=== PATIENT | female | born 1960 | race Caucasian/White ===

== ENCOUNTER → 2018-08-24 15:01 | Outpatient (CLI) | payer OTHER, SELFPAY ==
--- NOTE | 2018-08-24 15:05 | BI_ITS ---
MAMMOGRAPHY - BILATERAL SCREENING REASON FOR EXAM: Female, 58 years old. Routine annual screening examination. PERTINENT HISTORY: Non-contributory. Bilateral breast implants. TECHNIQUE: Digital bilateral breast max (3D mammographic acquisition) in the CC and MLO projections. 2-D mediolateral oblique (MLO) and craniocaudad (CC) views of both breasts were obtained. CAD: Full Field Digital Mammography with Computer Added Detection was performed. COMPARISON: Comparison is made with prior study dated August 20, 2016 and October 26, 2013. FINDINGS: Breast Composition: There are scattered areas of fibroglandular density. There are no dominant masses or suspicious calcifications. Stable appearance of the bilateral breast implants. No other significant abnormalities are identified. There has been no significant change since the prior study. BI/SCREENING MAMM (CAD), BILAT IMPRESSION: Stable bilateral screening mammogram. Yearly follow-up mammogram recommended. (A) ASSESSMENT CATEGORY: BIRADS Category 2: Benign. A letter regarding these results will be sent to the patient by the facility within 30 days. Approximately 10% of breast cancers are not detected by mammography. A normal mammogram should not delay biopsy of a clinically suspicious abnormality. [id number] Electronically Signed: Navjot Jay, at 8:53 EST , Service support ,
== END ==
PROVIDERS: Family Provider Family Medicine; PCP Family Medicine; Visit Provider Family Medicine
DX: Z12.31 Encounter for screening mammogram for malignant neoplasm of breast (principal)
CPT/HCPCS: 77063; 77067

== ENCOUNTER 2018-09-14 17:38 | Emergency (ER) | payer OTHER, SELFPAY ==
[2018-09-14 17:39] VITALS: BP 126/86; PULSE 77; RESP 16; TEMP 36.7; O2SAT 97; BMI 31.2
--- NOTE | 2018-09-14 18:24 | ED.DCSUM_ITS ---
- ER Visit Summary Date of Service: 09/14/18 Chief Complaint: Left fifth finger laceration History of Present Illness: The patient is a 58 F who was cooking dinner tonight and cut the end of her left fifth finger. She states that bleeding continued for an hour so she presented to the emergency room. Bleeding seems to be under control at this time. Tetanus update was just a few months ago. She is right- hand dominant. Physical Examination: Vital signs unremarkable. Patient sitting in bedside chair. Left upper extremity examination with a 2 x 4 mm skin avulsion over the distal left fifth finger. Bleeding is controlled at this time. She has normal range of motion and sensation. Test Results: [] Emergency Department Course and Treatment: Wound is cleansed. Gelfoam will be placed and a dressing applied. Treatment Plan: [] Disposition: Discharge Impression: Skin avulsion left fifth finger This note was generated with [employer] dictation software. It may contain incorrect words, spelling, and punctuation that were not noted in review of the chart prior to signing ED Disposition - Plan for ED Patient: Referrals: Roderick Weller DO [Primary Care Provider] -
--- NOTE | 2018-09-14 18:24 | ED.DEP ---
ED Disposition - Plan for ED Patient: Disposition: Home or Assisted Living Instructions: ED Avulsion Dermal Referrals: Roderick Weller DO [Primary Care Provider] - 1-2 Weeks
--- NOTE | 2018-09-14 18:41 | ED.RN ---
INJURED DIGIT DRESSED WITH GEL FOAM AND TUBE GAUZE. PT TOLERATED WELL. INSTRUCTIONS FOR CARE AT HOME GIVEN TO PT AND SPOUSE, BOTH CONVEYED UNDERSTANDING. TEACHING OF SIGNS OF INFECTION COMPLETE.
== END 2018-09-14 18:43 | disposition home or self-care (01) ==
LOC: ED 18:31
PROVIDERS: Emergency Provider Emergency Medicine; Family Provider Family Medicine; PCP Family Medicine
DX: S61.217A Laceration without foreign body of left little finger without damage to nail, initial encounter (principal); Z79.899 Other long term (current) drug therapy; W45.8XXA Other foreign body or object entering through skin, initial encounter; Y93.G3 Activity, cooking and baking; Y92.000 Kitchen of unspecified non-institutional (private) residence as the place of occurrence of the external cause; Y99.8 Other external cause status
CPT/HCPCS: 99282

== ENCOUNTER → 2019-01-06 | Outpatient (CLI) | payer OTHER, SELFPAY ==
--- NOTE | 2019-01-06 06:41 | MRI_ITS ---
STUDY: MRI BRAIN WITH AND WITHOUT CONTRAST (ATTENTION INTERNAL AUDITORY CANALS - I.A.C.'s) REASON FOR EXAM: Female, 58 years old. Hearing loss, right-sided tinnitus TECHNIQUE: Standardized multiplanar fat and water weighted pulse sequences were obtained. 17 IV Dotarem was administered for the contrast portion of the examination. COMPARISON: None. FINDINGS: Normal bilateral temporal bones. Normal bilateral internal auditory canals. There is no demonstrated intracanalicular or cisternal vestibular schwannoma (acoustic neuroma). There is no enhancement of the bilateral VIIth or VIIIth cranial nerves. Normal bilateral cochlea, vestibules and semicircular canals. Normal size of the ventricles and extra-axial spaces for the patient's age. Normal white matter tracts of the supratentorial brain. Normal bilateral basal ganglia. Normal thalami. Normal flow voids within the major intracranial circulation suggesting patency by spin echo criteria. Normal venous enhancement. There is no enhancing intra-axial or extra-axial abnormality. There is no extra-axial fluid accumulation. Normal sella turcica, pituitary gland, infundibular stalk, optic chiasm and hypothalamus. Normal tectal plate and pineal gland. Normal midbrain, leilani and medulla. Normal cerebellum. Normal basal cisterns. No demonstrated orbital abnormality, within the constraints of a routine brain study. Normal visualized paranasal sinuses. Normal calvarium and skull base. Normal visualized soft tissue structures. Normal visualized upper cervical spine. MRI/Brain W/WO Contrast IMPRESSION: Normal unenhanced and enhanced MRI of the bilateral internal auditory canals (I.A.C's). Electronically Signed: Mayela Viramontes, at 8:26 EDT Tel , Service support ,
--- NOTE | 2019-01-06 08:02 | NURSING ---
CONTRAST INJECTION THROUGH LT AC X2 ATTEMPTS BY THIS RN WITH BUTTERFLY NEEDLE.
== END | disposition home or self-care (01) ==
LOC: MRI 06:35
PROVIDERS: Family Provider Family Medicine; PCP Family Medicine; Referring Provider Otolaryngology; Visit Provider Otolaryngology
DX: H91.90 Unspecified hearing loss, unspecified ear (principal); H93.11 Tinnitus, right ear
CPT/HCPCS: 70553; A9575

== ENCOUNTER → 2019-08-25 07:18 | Outpatient (CLI) | payer OTHER, SELFPAY ==
[2019-08-01 15:26] VITALS: BMI 31.2
--- NOTE | 2019-08-25 07:20 | BI_ITS ---
MAMMOGRAPHY - BILATERAL SCREENING REASON FOR EXAM: Female, 59 years old. Routine annual screening examination. PERTINENT HISTORY: No family history of breast cancer TECHNIQUE: Digital bilateral breast yogi (3D mammographic acquisition) in the CC and MLO projections. 2-D mediolateral oblique (MLO) and craniocaudad (CC) views of both breasts were obtained. CAD: Full Field Digital Mammography with Computer Added Detection was performed. COMPARISON: Previously obtained on 08/24/2018 FINDINGS: Breast Composition: Heterogeneously dense There are no dominant masses or suspicious calcifications. No other significant abnormalities are identified. Bilateral breast implants are identified. BI/SCREEN MAMM (CAD) W/YOGI BILAT IMPRESSION: Stable bilateral screening mammogram. Yearly follow-up mammogram recommended. (A) ASSESSMENT CATEGORY: BIRADS Category 1: Negative. A letter regarding these results will be sent to the patient by the facility within 30 days. Approximately 10% of breast cancers are not detected by mammography. A normal mammogram should not delay biopsy of a clinically suspicious abnormality. [id number] Electronically Signed: Mike Leilani, at 17:58 EST Tel , Service support ,
== END ==
PROVIDERS: PCP Family Medicine; Referring Provider Family Medicine; Visit Provider Family Medicine
DX: Z12.31 Encounter for screening mammogram for malignant neoplasm of breast (principal)
CPT/HCPCS: 77063; 77067

== ENCOUNTER → 2020-02-23 09:52 | Outpatient (CLI) | payer OTHER, SELFPAY ==
[2020-02-13 15:45] VITALS: BMI 31.2
--- NOTE | 2020-02-23 09:57 | BD_ITS ---
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 COMPARISON: None. FINDINGS: Lumbar Spine (L1-L4): g/cm2 (1.051) / T-score (-1.0) / Z-score (0.1) Findings are suggestive of normal bone density with a low fracture risk. Left Femur Total: g/cm2 (0.881) / T-score (-1.0) / Z-score (-0.2) Left Femoral Neck: g/cm2 (0.837) / T-score (-1.4) / Z-score (-0.3) Right Femur Total: g/cm2 (0.815) / T-score (-1.5) / Z-score (-0.7) Right Femoral Neck: g/cm2 (0.784) / T-score (-1.8) / Z-score (-0.7) BD/Dexa Bone Density Study IMPRESSION: The patient is considered osteopenic as outlined below according to World Fazal Organization (WHO) criteria with a moderate fracture risk. Reference Information: The T-score is the number of standard deviations above or below the standard which is normal for young adults at their peak bone mineral density. The World Health Organization (WHO) interprets the T-scores as follows: Above -1 Normal bone density Between -1 and -2.5 Osteopenia Equal to / or below -2.5 Osteoporosis As a practical clinical guideline, osteopenia may be graded as follows: Mild -1 through -1.5 Moderate -1.6 through -2.0 Severe -2.1 through -2.4 The Z-score is the number of standard deviations above or below age-matched controls. A Z-score of less than -1.5 would be considered abnormal. References: 1. NIH Osteoporosis and Related Bone Diseases http://www.osteo.org 2. International Society for Clinical Densitometry http://www.iscd.org 3. National Osteoporosis Foundation http://www.nof.org Electronically Signed: Navjot Jay, at 14:43 EDT , Service support ,
== END ==
PROVIDERS: PCP Family Medicine; Referring Provider Family Medicine; Visit Provider Family Medicine
DX: Z78.0 Asymptomatic menopausal state (principal)
CPT/HCPCS: 77080

== ENCOUNTER 2020-03-14 12:45 | Outpatient (RCR) | payer OTHER, SELFPAY ==
[2020-02-13 15:45] VITALS: BMI 31.2
== END 2020-03-28 23:59 ==
LOC: EMPH 12:45
PROVIDERS: PCP Family Medicine; Visit Provider Family Medicine Geriatric Medicine
DX: Z11.59 Encounter for screening for other viral diseases (principal)
CPT/HCPCS: 87635; U0003

== ENCOUNTER → 2020-04-19 09:50 | Outpatient (CLI) | payer OTHER, SELFPAY ==
[2020-02-13 15:45] VITALS: BMI 31.2
== END ==
PROVIDERS: Anesthesiology; PCP Family Medicine; Referring Provider Family Medicine; Visit Provider Surgery
DX: Z20.828 Contact with and (suspected) exposure to other viral communicable diseases (principal)
CPT/HCPCS: 87635; C9803; U0003

== ENCOUNTER 2020-04-23 14:25 | Outpatient (RCR) | payer OTHER, SELFPAY ==
[2020-02-13 15:45] VITALS: BMI 31.2
[2020-04-23 17:52] LABS: Probe Check PASS; Specimen Processing Control PASS
== END 2020-04-28 23:59 ==
LOC: EMPH 14:25
PROVIDERS: PCP Family Medicine; Referring Provider Family Medicine Geriatric Medicine; Visit Provider Family Medicine Geriatric Medicine
DX: U07.1 COVID-19 (principal)
CPT/HCPCS: 87426; 87635; U0002

== ENCOUNTER 2020-07-27 08:39 | Outpatient (RCR) | payer OTHER, SELFPAY ==
[2020-02-13 15:45] VITALS: BMI 31.2
== END 2020-07-29 23:59 ==
LOC: EMPH 08:39
PROVIDERS: PCP Family Medicine; Referring Provider Family Medicine Geriatric Medicine; Visit Provider Family Medicine Geriatric Medicine
DX: Z03.818 Encounter for observation for suspected exposure to other biological agents ruled out (principal)
CPT/HCPCS: 87426

== ENCOUNTER 2020-08-21 12:36 | Outpatient (RCR) | payer OTHER, SELFPAY | END 2020-08-26 23:59 | LOC: EMPH 12:36 | PROVIDERS: PCP Family Medicine; Referring Provider Family Medicine Geriatric Medicine; Visit Provider Family Medicine Geriatric Medicine | DX: Z03.818 Encounter for observation for suspected exposure to other biological agents ruled out (principal) | CPT/HCPCS: 87426 ==

== ENCOUNTER 2020-09-19 09:34 | Outpatient (RCR) | payer OTHER, SELFPAY | END 2020-09-26 23:59 | LOC: EMPH 09:34 | PROVIDERS: PCP Family Medicine; Referring Provider Family Medicine Geriatric Medicine; Visit Provider Family Medicine Geriatric Medicine | DX: Z03.818 Encounter for observation for suspected exposure to other biological agents ruled out (principal) | CPT/HCPCS: 87426 ==

== ENCOUNTER 2020-10-19 14:25 | Outpatient (RCR) | payer OTHER, SELFPAY | END 2020-10-26 23:59 | LOC: EMPH 14:25 | PROVIDERS: PCP Family Medicine; Referring Provider Family Medicine Geriatric Medicine; Visit Provider Family Medicine Geriatric Medicine | DX: Z03.818 Encounter for observation for suspected exposure to other biological agents ruled out (principal) | CPT/HCPCS: 87426 ==

== ENCOUNTER 2020-12-25 10:38 | Outpatient (RCR) | payer OTHER, SELFPAY | END 2020-12-26 23:59 | LOC: EMPH 10:38 | PROVIDERS: PCP Family Medicine; Visit Provider Family Medicine Geriatric Medicine | DX: Z03.818 Encounter for observation for suspected exposure to other biological agents ruled out (principal) | CPT/HCPCS: 87426 ==

== ENCOUNTER 2021-02-26 12:16 | Outpatient (RCR) | payer OTHER, SELFPAY ==
[2020-12-24 14:58] VITALS: BMI 31.2
== END 2021-02-26 23:59 ==
LOC: EMPH 12:16
PROVIDERS: PCP Family Medicine; Visit Provider Family Medicine Geriatric Medicine
DX: Z03.818 Encounter for observation for suspected exposure to other biological agents ruled out (principal)
CPT/HCPCS: 87426

== ENCOUNTER 2021-03-11 09:31 | Outpatient (RCR) | payer OTHER, SELFPAY ==
[2021-02-27 00:16] VITALS: BMI 31.2
== END 2021-03-28 23:59 ==
LOC: EMPH 09:31
PROVIDERS: PCP Family Medicine; Visit Provider Family Medicine Geriatric Medicine
DX: Z03.818 Encounter for observation for suspected exposure to other biological agents ruled out (principal)
CPT/HCPCS: 87426

== ENCOUNTER → 2021-03-13 07:14 | Outpatient (CLI) | payer OTHER, SELFPAY ==
--- NOTE | 2021-03-13 07:16 | BI_ITS ---
MAMMOGRAPHY - BILATERAL SCREENING REASON FOR EXAM: Female, 60 years old. Routine annual screening examination. PERTINENT HISTORY: Non-contributory. Bilateral breast implants. TECHNIQUE: Digital bilateral breast yogi (3D mammographic acquisition) in the CC and MLO projections. 2-D mediolateral oblique (MLO) and craniocaudad (CC) views of both breasts were obtained. CAD: Full Field Digital Mammography with Computer Added Detection was performed. COMPARISON: Comparison is made with prior study of 08/25/2019 and 08/24/2018. FINDINGS: Breast Composition: The breasts are heterogeneously dense, which may obscure small masses. There are no dominant masses or suspicious calcifications. Stable appearance of the bilateral breast implants. No other significant abnormalities are identified. There has been no significant change since the prior study. BI/SCRN MAMM (CAD)W/YOGI BILAT IMPRESSION: Stable bilateral screening mammogram. Yearly follow-up mammogram recommended. (A) ASSESSMENT CATEGORY: BIRADS Category 2: Benign. A letter regarding these results will be sent to the patient by the facility within 30 days. Approximately 10% of breast cancers are not detected by mammography. A normal mammogram should not delay biopsy of a clinically suspicious abnormality. [id number] Electronically Signed: Navjot Jay MD at 8:53 EDT , Service support ,
== END ==
PROVIDERS: PCP Family Medicine; Referring Provider Family Medicine; Visit Provider Family Medicine
DX: Z12.31 Encounter for screening mammogram for malignant neoplasm of breast (principal)
CPT/HCPCS: 77063; 77067

== ENCOUNTER 2021-05-06 11:00 | Outpatient (RCR) | payer OTHER, SELFPAY ==
[2021-03-29 00:11] VITALS: BMI 31.2
== END 2021-05-28 23:59 ==
LOC: EMPH 11:00
PROVIDERS: PCP Family Medicine; Referring Provider Family Medicine Geriatric Medicine; Visit Provider Family Medicine Geriatric Medicine
DX: Z03.818 Encounter for observation for suspected exposure to other biological agents ruled out (principal)
CPT/HCPCS: 87426

== ENCOUNTER → 2021-05-29 07:48 | Outpatient (CLI) | payer OTHER, SELFPAY ==
--- NOTE | 2021-05-29 08:00 | RAD_ITS ---
STUDY: X-RAY - LUMBAR SPINE REASON FOR EXAM: Female, 61 years old. Low back pain TECHNIQUE: 3 view(s) of the lumbar spine were obtained. COMPARISON: 06/17/2012 CT abdomen/pelvis FINDINGS: Normal lumbar lordosis. Slight levoscoliosis centered on L4 with mild rightward listhesis of L3 on L4. There is a normal alignment of the vertebrae. There is multilevel endplate spondylosis of the lumbar vertebrae. There is multi-level degenerative disc disease with multi-level disc space narrowing. This is increased compared to 06/17/2012, most prominently at L4-5 where there is severe right-sided disc height loss and prominent subchondral sclerosis with osteophytes. Partially visualized bowel gas pattern is nonobstructive. RAD/Lumbar Spine 2 or 3 Views IMPRESSION: Progression of lumbar spine degenerative change compared to 06/17/2012, particularly at L4-5. Electronically Signed: Lalo Seo MD at 1:45 EST Tel , Service support ,
== END ==
PROVIDERS: PCP Family Medicine; Referring Provider Chiropractor; Visit Provider Chiropractor
DX: M99.03 Segmental and somatic dysfunction of lumbar region (principal)
CPT/HCPCS: 72100

== ENCOUNTER 2021-06-27 10:11 | Outpatient (RCR) | payer OTHER, SELFPAY ==
[2021-05-29 00:07] VITALS: BMI 31.2
== END 2021-06-28 23:59 ==
LOC: EMPH 10:11
PROVIDERS: PCP Family Medicine; Referring Provider Family Medicine Geriatric Medicine; Visit Provider Family Medicine Geriatric Medicine
DX: Z03.818 Encounter for observation for suspected exposure to other biological agents ruled out (principal)
CPT/HCPCS: 87426; 87635; U0003

== ENCOUNTER 2021-07-29 09:07 | Outpatient (RCR) | payer OTHER, SELFPAY ==
[2021-06-29 00:11] VITALS: BMI 31.2
== END 2021-07-29 23:59 ==
LOC: EMPH 09:07
PROVIDERS: PCP Family Medicine; Referring Provider Family Medicine Geriatric Medicine; Visit Provider Family Medicine Geriatric Medicine
DX: Z03.818 Encounter for observation for suspected exposure to other biological agents ruled out (principal)
CPT/HCPCS: 87426

== ENCOUNTER 2021-07-30 15:00 | Outpatient (RCR) | payer OTHER, SELFPAY ==
--- NOTE | 2021-07-02 16:36 | HP.PTEVAL_ITS ---
Patient's Visit Information NEGIN VERGARA is a 61 year old F referred to Physical Therapy by Dr. Ximena Parkinson DC with a diagnosis of DDD LUMBOSACRAL. Date of Evaluation: 07/02/21 Physical Therapist: Skip Bañuelos, PT, Cert MDT, OCS - Visit Plan Frequency: 2x /Week Duration: 4 Weeks Plan: PT INTERVENTIONS PATIENT MODIFICATION ,POSTURE/BODY MECHANICS,TITO EX'S ,DLS,MANUAL THERAPY AND MODALTIES - Subjective This 61 y/o female presents to physical therapy with lumbar pain. Patient has had right lumbar pain occasional hamstring ~ 2months which progressively worse. Symptoms maybe go worse lifting a patient. Aggravating factors sitting, bending ,lifting and walking. Alleviating factors. stretches. Symptoms affects sleeping . Denies paresthesia/tingling. Coughing/sneezing-. Bowel/bladder -. Patient sees chiropractor. Patient had x-rays showed DDD severe loss disc height L4-5. Patient symptoms affects QOL and function . SOCIAL: . VOCATION:EXECUTIVE OFFICER at [employer] - Pain Right Back Pain Intensity (Out of 10): 7 Pain Intensity Range: 10 - Objective POSTURE: mild forward posture. GAIT: reciprocal pattern. NEURO: denies paresthesia/tingling, reflexes L3-4,L4-5,L5-S1 2/3. SYMMTRIES: align. MMT: quads/hams 4/5,hip flexion 4/5,hip abd 4-/5,ankle 4/5. LUMBAR ROM: flexion mod loss pain, extension mod loss pain ,mod /severe loss right pain right glut ,left WFL. FLEXABLITY: hamstrings mild tight - Special Tests L/S Slump test left side: Negative L/S Slump test right side: Positive L/S Left Straight Leg Raise: Negative L/S Right Straight Leg Raise: Negative Lumbar Standing: Flexion - Mechanical Response: No effect Lumbar Standing: Flexion - Symptoms During Testing: Increases Lumbar Standing: Flexion - Symptoms After Testing: Worse Comments:: glut Lumbar Standing: Extension - Mechanical Response: No effect Lumbar Standing: Extension - Symptoms During Testing: Increases Lumbar Standing: Extension - Symptoms After Testing: No worse Comments:: right back Lumbar Standing: Right Side Glides - Mechanical Response: No effect Lumbar Standing: Right Side [place]istad - Symptoms During Testing: Increases Lumbar Standing: Right Side [place] - Symptoms After Testing: Worse Lumbar Standing: Left Side [place] - Mechanical Response: No effect Lumbar Standing: Left Side [place] - Symptoms During Testing: No effect Lumbar Standing: Left Side [place] - Symptoms After Testing: No effect Lumbar Lying: Flexion - Mechanical Response: No effect Lumbar Lying: Flexion - Symptoms During Testing: Increases Lumbar Lying: Flexion - Symptoms After Testing: Worse Comments:: glut Lumbar Lying: Extension - Mechanical Response: Increases motion Lumbar Lying: Extension - Symptoms During Testing: Decreases Lumbar Lying: Extension - Symptoms After Testing: Better - Balance/Special Test Scores Oswestry Low Back Score: 22 - Goals Goal 1:: I with HEP for lumbar Goal Time Frame: 4-6 Weeks Goal 2:: Patient to demonstrate 50% improvement with decrease lumbar pain to improve function. Goal Time Frame: 4-6 Weeks Goal 3:: Patient to increase lumbar ROM for function of recovery for flexion to put on shoes Goal Time Frame: 4-6 Weeks Goal 4:: Patient to demonstrate improvement with posture and lifting patients 90% of the time. Goal Time Frame: 4-6 Weeks Goal 5:: Patient to improve back owesrty score by 5 points to improve QOL Goal Time Frame: 4-6 Weeks - Rehabilitation Potential Physical Therapy Diagnosis: This patient has possible lumbar derangement with pain increases with motion testing ,positional ,sitting bending better with posture extension and mechanical response thus will benefit from skilled PT Rehabilitation Potential: Good - Anticipated Interventions Patient/Client Instruction: Educate patient on: Condition, Plan of Care For the Purpose of:: To decrease pain, To increase ROM, To improve muscle performance and motor function, To improve ability to perform ADL's, To increase tolerance to activity/condition/position, To improve ability of physical actions for home/community/work/leisure, To improve health of tissue, To decrease soft tissue restriction, To increase flexibility/ROM, To prevent re-injury Therapeutic Exercise to Include: Strength training, Body mechanics, Postural training, Flexibilty training, Dynamic Lumbar Stabilization, Tito Exercises For the Purpose of:: To decrease pain, To increase ROM, To improve muscle performance and motor function, To increase tolerance to activi ty/condition/position, To improve ability of physical actions for home/community/work/leisure, To improve health of tissue, To decrease soft tissue restriction, To increase flexibility/ROM Manual Therapy Techniques to Include: Mobilization For the Purpose of:: To decrease pain, To increase ROM, To improve muscle performance and motor function, To improve health of tissue, To decrease soft tissue restriction, To increase flexibility/ROM TENS: Yes IF ES: Yes Cryotherapy (ice pack, ice massage): Yes Ultrasound (thermal/non thermal): Yes For the Purpose of:: To decrease pain, To increase ROM, To improve muscle performance and motor function, To improve health of tissue, To decrease soft tissue restriction, To increase flexibility/ROM Thank you for the opportunity to evaluate your patient. For Medicare and Medicare HMO plans, please review the plan of care and approve it. It will need to be FAXED BACK to us at [phone] for Medicare purposes. For Medicare only, by signing this I certify the plan of care. Please let me know if there are questions or concerns regarding this plan of care. Physician Signature: Date:
--- NOTE | 2021-07-30 15:33 | HP.PTDCSUM ---
It has been my pleasure to treat NEGIN VERGARA referred by Dr. Ximena Parkinson DC, with the diagnosis of DDD LUMBOSACRAL for a total of 7 visit(s). Discharge Date: 07/30/21 Please see the following information for a summary of their discharge status. Subjective: Doing good ready d/c Right Back Pain Intensity (Out of 10): 2 % Improvement: 75 Objective/Function: POSTURE: mild forward posture. GAIT: reciprocal pattern. MMT: quads/hams 4/5,hip flexion 4/5,ankle 5/5. LUMBAR ROM: flexion min loss ,extension min loss Goal 1:: I with HEP for lumbar Goal Progress: Goal Met Goal 2:: Patient to demonstrate 50% improvement with decrease lumbar pain to improve function. Goal Progress: Goal Met Goal 3:: Patient to increase lumbar ROM for function of recovery for flexion to put on shoes Goal Progress: Goal Met Goal 4:: Patient to demonstrate improvement with posture and lifting patients 90% of the time. Goal Progress: Goal Met Goal 5:: Patient to improve back owesrty score by 5 points to improve QOL Plan: D/C TO HEP Discharge Comments: HEP If there are questions or concerns regarding this patient's physical therapy, please feel free to call me at [phone]. Thank you for the referral of this patient. Sincerely, Skip Bañuelos PT, Cert MDT, OCS Balance/Gait/Functional tests - Balance/Special Test Scores Oswestry Low Back Score: 7
== END 2021-07-30 19:00 | disposition home or self-care (01) ==
LOC: PT 15:00
PROVIDERS: PCP Family Medicine; Referring Provider Chiropractor; Visit Provider Chiropractor
DX: M99.03 Segmental and somatic dysfunction of lumbar region (principal); M99.05 Segmental and somatic dysfunction of pelvic region; M51.37 Other intervertebral disc degeneration, lumbosacral region
CPT/HCPCS: 97110; 97161

== ENCOUNTER 2021-08-22 09:20 | Outpatient (RCR) | payer OTHER, SELFPAY ==
[2021-07-30 00:17] VITALS: BMI 31.2
== END 2021-08-26 23:59 ==
LOC: EMPH 09:20
PROVIDERS: PCP Family Medicine; Referring Provider Family Medicine Geriatric Medicine; Visit Provider Family Medicine Geriatric Medicine
DX: Z03.818 Encounter for observation for suspected exposure to other biological agents ruled out (principal)
CPT/HCPCS: 87426

== ENCOUNTER 2021-12-27 16:24 | Emergency (ER) | payer OTHER, SELFPAY ==
[2021-12-27 16:26] VITALS: BP 138/80; PULSE 117; RESP 18; TEMP 36.4; O2SAT 97; BMI 26.6
--- NOTE | 2021-12-27 16:31 | CT_ITS ---
EXAMINATION : Head CT w/out contrast HISTORY : FALL COMPARISON : None. TECHNIQUE : Multiple contiguous axial images were obtained from the skull base to the vertex without intravenous contrast. A radiation dose optimization technique was used for this scan. FINDINGS : The ventricles and sulci are normal in size. There is no evidence for acute intracranial hemorrhage, mass effect, or midline shift. There is no extra-axial fluid collection. There is normal pereyra-white differentiation, without CT evidence of acute ischemia or infarct. The skull base and calvarium are unremarkable. The orbits are unremarkable. The paranasal sinuses are clear. The mastoid air cells are well-aerated. Large right frontal scalp hematoma. CT/Brain/Head without Contrast IMPRESSION: Large right frontal scalp hematoma. No fracture or intracranial hemorrhage. Electronically Signed: Nish Darling MD at 17:38 EDT ,
--- NOTE | 2021-12-27 17:13 | EDS_ITS ---
HPI HPI - Fall History of Present Illness Chief Complaint: Fall Informant: patient and spouse/S.O. Occured/Mechanism Occurred: Today Mechanism/Context: Yes same level fall Narrative: Vertiginous when she turned and fell, hitting her head on the garage floor Usually ambulates: Without assistance Pain/Injury Pain Location: head Quality of Pain: - (sore) Current Severity: Mild Maximum Severity: Moderate Worsened by: palpation Relieved by: ice to affected area Associated Symptoms Associated Symptoms: Negative for Parasthesias, Weakness, Inability to ambulate, Loss of consciousness or Amnesia Narrative Narrative: Patient has a history of intermittent vertigo, she gets episode several times a year, she took an Antivert this morning because of having symptoms, and she was doing better. However she was in the garage, she changed positions and turned really fast, her body and her head, and this caused her to have her head turned back and she lost her balance and fell hitting her face/forehead. She did not lose consciousness. No nausea or vomiting. No headache, chest pain in the scalp. She presented out of concern because it is a big hematoma. She denies any laceration or other injuries. She injured her glasses and cannot wear them anymore, and is having blurry vision as a result of not having her glasses but otherwise no changes. She takes no anticoagulants or antiplatelet medications. [facility] Medical History Bilateral headaches Vertigo Home Medications furosemide 20 mg tablet (Lasix) 20 mg PO DAILY PRN water retention 01/24/19 [History Last Taken Unknown] alendronate 70 mg tablet 70 mg PO Q7D@0700 04/18/20 [History Last Taken Unknown] Allergy/AdvReac Type Severity Reaction Status Date / Time No Known Allergies Allergy Verified 12/27/21 16:25 Family History Other CVA (cerebral vascular accident) Cancer Surgical History H/O: hysterectomy History of tonsillectomy Social History Smoking Status: Former smoker alcohol intake: never substance use type: does not use what type of physical activity do you participate in: walking and weight training frequency: 1-2 times per week ROS ROS ED Constitutional Constitutional ED: Denies chills or fever(s) Eyes Eyes: Denies change in vision or diplopia ENT ENT ED: Reports other Details: Fullness sensation in her right ear. Scalp pain/hematoma/trauma. ; Denies ear pain, epistaxis, facial pain or rhinorrhea Cardiovascular Cardiovascular: Denies chest pain or palpitations Respiratory/Chest Respiratory/Chest: Denies cough or dyspnea Gastrointestinal Gastrointestinal: Denies abdominal pain, diarrhea, melena, nausea or vomiting Genitourinary Genitourinary ED: Denies dysuria or hematuria Musculoskeletal Musculoskeletal: Denies back pain, extremity pain or neck pain Integumentary Denies abscess, Abrasions, laceration or rash Neurologic Neurologic: Denies confusion, headache(s), paresthesias or weakness EXAM Physical Exam Const Vital Signs: 12/27/21 16:26 12/27/21 16:59 Temperature 97.5 F L Temperature Source Temporal Pulse Rate 117 H Respiratory Rate 18 Respiratory Effort Normal Respiratory Depth Normal Respiratory Pattern Normal Blood Pressure 138/80 H Blood Pressure Mean 99 Pulse Ox 97 Oxygen Delivery Method Room Air Room Air Positive well nourished and well developed General Appearance ED: well developed and NAD HEENT Reports TM's clear and nasal mucous membranes and turbinates normal HEENT Narrative: Forehead hematoma without crepitance or depression although some of the exam is limited due to the size of the hematoma which is focal and about 5 cm in diameter. No tenderness of the orbital brim, no sign of eye trauma. Face and Sinus: Negative for facial tenderness Tympanic Membrane ED: Yes TM's clear Eyes PERRL and EOMs intact bilaterally Visual Acuity: other Other Details: no entrapment or pain with extraocular movements Neck full ROM and supple General: Negative for tenderness Chest Wall inspection of chest normal and palpation of chest normal Chest: symmetrical chest wall rise; Negative for crepitus or tenderness Resp normal respiratory effort and clear to auscultation bilaterally Percussion: other equal BS bilat Cardio no murmurs Rate: regular rate Rhythm: regular rhythm GI normal to inspection, nondistended, normoactive bowel sounds, soft to palpation and non-tender Back/Spine normal ROM Cervical Spine: Negative for cervical spine tenderness Thoracic Spine / Upper Back: Negative for thoracic spinal tenderness Lumbar Spine / Lower Back: Negative for lumbar spinal tenderness Extremity normal to inspection and full ROM General Extremety ED: Negative for tenderness Neuro oriented x3, CN's II-XII intact bilaterally, moves all extremities, no focal motor deficits and no sensory deficits noted Freddy Coma Scale: document GCS findings Spontaneous Obeys Commands Oriented 15 Sensorium / Orientation: awake and alert Psych mental status grossly normal and thought process normal Skin no wounds Lesions: no lesions Rashes: no rashes MDM MDM MDM Narrative Medical decision making narrative: CT head was obtained, it is negative for any intracranial injury. Patient was reassured, she does not have symptoms of a concussion right now, but it is possible to develop them within the next 24 to 48 hours. 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 Ice to the effected area, Tylenol, ibuprofen as needed. She is comfortable with that plan. Radiography Diagnostic Testing: Clinical Impression(s) from Imaging Studies Brain CT 12/27/21 16:31 IMPRESSION: Large right frontal scalp hematoma. No fracture or intracranial hemorrhage. Electronically Signed: Nish Darling MD at 17:38 EDT , Discharge Plan Triage Chief Complaint: Fall ED Provider: Doron Espinosa Dx/Rx/DC Orders Clinical Impression: Closed head injury without loss of consciousness, Traumatic hematoma of forehead, Peripheral positional vertigo Instructions: ED BPV Vertigo, ED Head Injury (Adult) Prescriptions: No Action furosemide [Lasix] 20 mg tablet 20 mg PO DAILY PRN (Reason: water retention) alendronate 70 MG tablet 70 mg PO Q7D@0700 Primary Care Provider: Roderick Weller Referrals: Clemente Hobson MD [STAFF PHYSICIAN] - As Needed (for continued vertigo symptoms) Roderick Weller, [Primary Care Provider] - Disposition Disposition: Home, Self Care
[2021-12-27 18:01] VITALS: PULSE 84; RESP 14; O2SAT 99
== END 2021-12-27 18:12 | disposition home or self-care (01) ==
LOC: ED 17:23
PROVIDERS: Emergency Provider Emergency Medicine; PCP Family Medicine; Visit Provider Emergency Medicine
DX: S00.03XA Contusion of scalp, initial encounter (principal); R51.9 Headache, unspecified; W18.30XA Fall on same level, unspecified, initial encounter; Z87.891 Personal history of nicotine dependence; H81.10 Benign paroxysmal vertigo, unspecified ear
CPT/HCPCS: 70450; 99282

== ENCOUNTER 2022-01-21 16:00 | Outpatient (RCR) | payer OTHER, SELFPAY ==
--- NOTE | 2022-01-14 12:44 | HP.PTEVAL ---
Patient's Visit Information NEGIN RIOS is a 61 year old F referred to Physical Therapy by Dr. Roderick Weller DO with a diagnosis of Dizzyness and giddiness.. Date of Evaluation: 01/14/22 Physical Therapist: Dilan Kern, DPT, OCS, CSCS - Visit Plan Frequency: 1x/Week Duration: 2-4 Weeks Plan: weekly as needed for progression of adaptation ex(VOR 60 sec H today) and balance checks as needed. - Subjective Has had periods of dizzyness on off for a couple years. r ear has felt clogged. ENT could do nothing. December 27 fell and hit head after turning to the left and felt a pull in head and fell on forehead and smashed glasses. CATscan at ED was OK. Was in kitchen last Thursday and turned and got dizzy again and was that way the rest of the night. Was sick that night and worked from home the next day. Has not felt normal since hit head but dizzyness was only 2x. Feels brain foggy otherwise. 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 Sleeping OK and alot. Hobbies include reading and cooking and can do those things. forehead hurts where she hit it. Neck soreness since she fell and hurts L side. 70% better. - Pain Neck pain. Pain Intensity (Out of 10): 0 Pain Intensity Range: 0, 4 Comment: sees dossi once per month - Objective Walks into PT I and transfers bed and chair I. Steps reciprocal with one rail. Cervical AROM EFL and symmetrical. UE aROM WFL. 4+/5 shoulder strength without pain. - B hallpike ori. - roll test. Oculomotor: - skew eye deviation. - ocular tilt. - head thrust. no nystagmus with gaze or head shake. normal pursuit and saccades. Convergence is a little slow. VOR H 30 sec gives 4/10 for 15 seconds. VOR V 30 sec no symptoms. MSQ positions do not bother patient today as far as dizzyness goes. - Balance/Special Test Scores Functional Gait Assessment Score: 27 % Disability: 10.0000 CATSIB Score (Max score 120 seconds): 120 Dizziness Score: 62 - Goals Goal 1:: FGA to improve safety Goal Time Frame: 2-4 Weeks Goal 2:: Dizzy/foggy feeling abolished 100% Goal Time Frame: 2-4 Weeks Goal 3:: DHI score 20 or less. Goal Time Frame: 2-4 Weeks - Rehabilitation Potential Physical Therapy Diagnosis: dixxy symptoms likely form vest concussion causing foggy feeling Rehabilitation Potential: Good - Anticipated Interventions Patient/Client Instruction: Educate patient on: Condition, Plan of Care For the Purpose of:: To increase tolerance to activity/condition/position Therapeutic Exercise to Include: Balance training Comment: adaption vestib exercises For the Purpose of:: To increase tolerance to activity/condition/position Thank you for the opportunity to evaluate your patient. For Medicare and Medicare HMO plans, please review the plan of care and approve it. It will need to be FAXED BACK to us at [phone] for Medicare purposes. For Medicare only, by signing this I certify the plan of care. Please let me know if there are questions or concerns regarding this plan of care. Physician Signature: Date:
--- NOTE | 2022-03-18 12:57 | HP.PT.NRP ---
NEGIN RIOS was seen in my office for initial evaluation on 01/14/22. The following Plan of Care was established for this patient: Initial Frequency: 1x/Week Initial Duration: 2-4 Weeks Patient/Client Instruction: Educate patient on: Condition, Plan of Care For the Purpose of:: To increase tolerance to activity/condition/position Therapeutic Exercise to Include: Balance training For the Purpose of:: To increase tolerance to activity/condition/position This patient was last seen in our office 01/21/22. Pertinent comments regarding their Physical therapy will appear below: Pt seen two visits and felt 90% better overall. was to return for follow up but did not schedule or attend. at this point, It has been over 7 weeks and I will discontinue from my care. At this point I will be discontinuing this patient from physical therapy. I would be happy to see this patient again in the future if found appropriate by the physician. Thank you! Dilan Kern, DPT, OCS, CSCS Balance/Gait/Functional tests - Balance/Special Test Scores Functional Gait Assessment Score: 30 % Disability: 0 CATSIB Score (Max score 120 seconds): 120 Dizziness Score: 10
== END 2022-01-21 19:00 | disposition home or self-care (01) ==
LOC: PT 16:00
PROVIDERS: PCP Family Medicine; Referring Provider Family Medicine; Visit Provider Family Medicine
DX: R42 Dizziness and giddiness (principal)
CPT/HCPCS: 97162; 97530

== ENCOUNTER → 2022-05-26 | Outpatient (CLI) | payer OTHER, SELFPAY ==
--- NOTE | 2022-05-26 07:46 | BI_ITS ---
MAMMOGRAPHY - BILATERAL SCREENING REASON FOR EXAM: Female, 62 years old. Routine annual screening examination. PERTINENT HISTORY: Non-contributory. History of prior bilateral breast implants. TECHNIQUE: Digital bilateral breast yogi (3D mammographic acquisition) in the CC and MLO projections. 2-D mediolateral oblique (MLO) and craniocaudad (CC) views of both breasts were obtained. CAD: Full Field Digital Mammography with Computer Added Detection was performed. COMPARISON: Comparison is made with prior study dated 03/13/2021 and 08/25/2019. FINDINGS: Breast Composition: The breasts are heterogeneously dense, which may obscure small masses. There are no dominant masses or suspicious calcifications. Stable appearance of the bilateral breast implants. No other significant abnormalities are identified. There has been no significant change since the prior study. BI/SCRN MAMM (CAD)W/YOGI BILAT IMPRESSION: Stable bilateral screening mammogram. Yearly follow-up mammogram recommended. (A) ASSESSMENT CATEGORY: BIRADS Category 2: Benign. A letter regarding these results will be sent to the patient by the facility within 30 days. Approximately 10% of breast cancers are not detected by mammography. A normal mammogram should not delay biopsy of a clinically suspicious abnormality. [id number] Electronically Signed: Navjot Jay MD at 10:31 EST ,
== END | disposition home or self-care (01) ==
LOC: OPBI 07:27
PROVIDERS: PCP Family Medicine; Visit Provider Family Medicine
DX: Z12.31 Encounter for screening mammogram for malignant neoplasm of breast (principal); Z98.82 Breast implant status
CPT/HCPCS: 77063; 77067

== ENCOUNTER 2022-07-23 07:03 | Day surgery (SDC) | payer OTHER, SELFPAY ==
[2022-07-23] MEDS: Lactated Ringers 1,000 ML 15 ML IV (07:23)
[2022-07-23 07:24] VITALS: BP 128/85; PULSE 100; RESP 18; TEMP 36.2; O2SAT 98; BMI 28.2
--- NOTE | 2022-07-23 08:09 | HP.PCM_ITS ---
HPI - General General Date of Admission: 07/23/22 HPI Narrative NEGIN RIOS, is a 62 F who presents presents for screening colonoscopy. Patient never had a previous colonoscopy. Patient denies any family history of colon cancer. Patient denies any chronic abdominal pain/nausea/vomiting/reflux. Patient has bowel movements about every other day denies any blood. [facility] Medical History (Updated 07/21/22 @ 12:50 by Enedelia Lin) Bilateral headaches Former smoker Injury of head and neck Osteopenia Vertigo Wears glasses Home Medications furosemide 20 mg tablet (Lasix) 20 mg PO DAILY PRN water retention 01/24/19 [History Last Taken Unknown] Allergy/AdvReac Type Severity Reaction Status Date / Time No Known Allergies Allergy Verified 07/23/22 07:22 Family History (Updated 06/03/22 @ 08:18 by Kenya Stein) Father Prostate cancer Mother Alzheimer disease Other CVA (cerebral vascular accident) Cancer Surgical History H/O: hysterectomy History of bladder suspension procedure History of tonsillectomy Social History Smoking Status: Former smoker alcohol intake: never substance use type: does not use what type of physical activity do you participate in: walking and weight training frequency: 1-2 times per week Past Medical/Surgical History Planned Operation Planned Operative Procedure/s: colonoscopy S.O.S: No Previous Hospitalizations/Surgeries HX Hospitalizations: No HX of Surgeries: bladder sling 2011 hysterectomy tonsillectomy tubal ligation right ovary removed Any Problems With Anesthesia: No You/Your Family Experience Fever (Hyperthermia) With Anes: No Cholinesterase deficiency: No Cardiovascular Hx Chest Pain within Last 2 months: No Hx of Irregular Heartbeat and/or Afib: No Hx Heart Attack: No Hx Congestive Heart Failure: No Hx Rheumatic Fever: No Hx Hypertension: No Hx Internal Defibrillator: No Hx Pacemaker: No Hx Cardiac Catheterization: No Hx Cardiac Surgery/Stents/Etc.: No Hx Stress Test: No Hx Pain in Legs when Walking/Leg Cramps: No Respiratory Chronic Cough: No HX of Shortness of Breath: No Hoarseness: No Hx Chronic Obstructive Pulmonary Disease (COPD): No Hx Asthma: No Hx Emphysema: No Hx Sleep Apnea: No Hx Respiratory Tract Infection/Cold (presently): No Do You Snore Loudly (louder than talking or can be heard): No Do You Often Feel Tired/ Fatigued/ Sleepy Dring Daytime?: No Has Anyone Observed You Stop Breathing During Sleep?: No Result (for STOP score): Negative Hx Smoking: Yes Smoking Status: Former smoker Gastrointestinal Hx Gastroesophageal Reflux: No Hx Gastrointestinal Disorders: No Hx Gastrointestinal Bleed: No Hx Ulcer: No Hx Hiatal Hernia: No Difficulty Chewing/Swallowing: No Special diet followed at home: No Hx Unplanned Weight Loss of 20#: No HX Unplanned Weight Gain of 20#: No Neurological Hx Seizures: No HX Syncope/Blackout Spells/Unconsciousness: No Hx Transient Ischemic Attacks (TIA): No Hx Multiple Sclerosis: No Hx Parkinson's Disease: No Hx Head/Neck Injury: No Hx Headaches: No Hx Back Injury/Pain: No Recent Onset of Speech Difficulty: No Restless Legs: No Does patient have nerve stimulator: No Blood Disorder Hx Leukemia: No Bleeding Tendencies: No Hx Deep Vein Thrombosis: No Hx High Cholesterol: No Blood Transmitted Disease: No Hx Hepatitis: No Hx Cirrhosis: No Hx Anemia: No Hx Blood Disorders: No Reproduction : No Is Patient Lactating: No Hx Hysterectomy: Yes Hx Tubal Ligation: Yes Are You Post Menopause: Yes Genitourinary Hx Renal Disease: No Musculoskeletal Hx Arthritis: No Hx Rheumatoid Arthritis: No Hx Gout: No Recent Onset of an Orthopedic Problem: No Endocrine Hx Diabetes: No Thyroid Disease: No Hx Steroid Therapy: No Psycho/Social Hx Substance Use: No Hx Alcohol Use: No Hx Anxiety: No Hx Depression: No Mental Illness: No Hx Dementia: No Miscellaneous Hx Cancer: No Recent Exposure to Contagious Disease: No Hx of C-Diff: No Any Loose Teeth: No Allergies No Known Allergies Allergy (Verified 07/23/22 07:22) Discharge Is Pt Admitted From a Skilled Nursing, or a Halfway: No Who Could Help: friend After D/C, Where Do you Plan to Go: Return Home Vital Signs Vital Signs Vital Signs: 07/23/22 07:24 07/23/22 07:24 Temperature 97.2 F L Temperature Source Temporal Pulse Rate 100 Respiratory Rate 18 Respiratory Pattern Normal Blood Pressure 128/85 H Blood Pressure Mean 99 Blood Pressure Source Monitor Blood Pressure Position Semi-Fowlers Blood Pressure Location Right Arm Pulse Ox 98 Oxygen Delivery Method Room Air Weight Weight: 175 lb Body Mass Index (BMI) 28.2 Physical Exam Const alert, oriented x3 and no apparent distress HEENT normocephalic and head/scalp atraumatic Resp normal respiratory effort Cardio regular rate GI soft to palpation and non-tender; Negative for non-distended Palpation: Negative for guarding Extremity no clubbing, cyanosis or edema Neuro CN's II-XII intact bilaterally Psych mental status grossly normal Assessment & Plan Assessment/Plan (1) Encounter for screening for malignant neoplasm of colon: Surgery Risks - Colonoscopy Risks Include but are not Limited To: Risks include but are not limited to: Bleeding, perforation requiring further surgery, inability to complete colonoscopy requiring barium enema.
[2022-07-23 08:47] VITALS: BP 115/70; BP 128/85; PULSE 85; RESP 16; TEMP 36.7; O2SAT 98
[2022-07-23 08:50] VITALS: BP 115/70; BP 128/85; PULSE 78; RESP 16; O2SAT 100
--- NOTE | 2022-07-23 08:50 | OP.COLON_ITS ---
Patient Name: Jane Acharya Procedure Date: 07/23/2022 8:08 AM Date of : 1960 Age: 62 Procedure: Colonoscopy Indications: Screening for colorectal malignant neoplasm Providers: Marybel Trevino MD Medicines: Monitored Anesthesia Care Patient Profile: This is a 62 year old female. Last Colonoscopy: none. The patient's first colonoscopy is today. Complications: No immediate complications. Procedure: Pre-Anesthesia Assessment: - Prior to the procedure, a History and Physical was performed, and patient medications and allergies were reviewed. The patient's tolerance of previous anesthesia was also reviewed. The risks and benefits of the procedure and the sedation options and risks were discussed with the patient. All questions were answered, and informed consent was obtained. Prior Anticoagulants: The patient has taken no previous anticoagulant or antiplatelet agents. ASA Grade Assessment: Per anesthesia. After reviewing the risks and benefits, the patient was deemed in satisfactory condition to undergo the procedure. After I obtained informed consent, the scope was passed under direct vision. Throughout the procedure, the patient's blood pressure, pulse, and oxygen saturations were monitored continuously. The pediatric colonoscope was introduced through the anus and advanced to the cecum, identified by the appendiceal orifice, ileocecal valve and palpation. The colonoscopy was performed without difficulty. The patient tolerated the procedure well. The quality of the bowel preparation was good. Scope In: 8:23:37 AM Scope Withdrawal Time 0 hours 10 minutes 34 seconds Scope Out: 8:43:26 AM Total Procedure Duration Time 0 hours 19 minutes 49 seconds Findings: The perianal and digital rectal examinations were normal. The entire examined colon appeared normal on direct and retroflexion views. Impression: - The entire examined colon is normal on direct and retroflexion views. - No specimens collected. Recommendation: - Discharge patient to home. - Resume previous diet. - Continue present medications. - Repeat colonoscopy in 10 years for screening purposes. Procedure Code(s): --- Professional --- G0121, PT, Colorectal cancer screening; colonoscopy on individual not meeting criteria for high risk Diagnosis Code(s): --- Professional --- Z12.11, Encounter for screening for malignant neoplasm of colon CPT copyright 2017 [employer]. All rights reserved. The codes documented in this report are preliminary and upon professional fee coder review may be revised to meet current compliance requirements. MD Marybel Maxwell MD 07/23/2022 8:49:46 AM This report has been signed electronically. Number of Addenda: 0 Note Initiated On: 07/23/2022 8:08 AM
--- NOTE | 2022-07-23 08:51 | OP.CCLET_ITS ---
07/23/2022 Roderick Weller [address] [place] [address] Re : Colonoscopy procedure for Jane Acharya Dear Dr. Weller This procedure was performed on Saturday, July 23, 2022. My impressions and recommendations are as follows: Impressions : - The entire examined colon is normal on direct and retroflexion views. - No specimens collected. Recommendations : - Discharge patient to home. - Resume previous diet. - Continue present medications. - Repeat colonoscopy in 10 years for screening purposes. My findings are described in the full procedure note, which is enclosed. If I can be of further assistance, please feel free to contact me at Doctor phone number(s): , Work: . Sincerely, MD Marybel Maxwell MD 07/23/2022 8:49:46 AM This report has been signed electronically.
[2022-07-23 08:55] VITALS: BP 112/78; BP 128/85; PULSE 80; RESP 18; O2SAT 100
[2022-07-23 09:00] VITALS: BP 128/85; BP 99/71; PULSE 76; RESP 18; TEMP 36.1; O2SAT 99
[2022-07-23 09:11] VITALS: BP 128/85
== END 2022-07-23 09:51 | disposition home or self-care (01) ==
LOC: EN 07:04 → AC 07:06
PROVIDERS: PCP Family Medicine; Referring Provider Family Medicine; Visit Provider Surgery
PROC: 0DJD8ZZ Inspection of Lower Intestinal Tract, Via Natural or Artificial Opening Endoscopic (ICD-10-PCS; CPT 45378; principal; 2022-07-23 08:10)
DX: Z12.11 Encounter for screening for malignant neoplasm of colon (principal); Z87.891 Personal history of nicotine dependence
CPT/HCPCS: 45378; J7120; J2405

== ENCOUNTER → 2022-12-04 | Outpatient (CLI) | payer OTHER, SELFPAY | END | disposition home or self-care (01) | LOC: LABSPEC 08:33 | PROVIDERS: PCP Family Medicine; Referring Provider Family Medicine; Visit Provider Family Medicine | DX: R30.0 Dysuria (principal) | CPT/HCPCS: 87086 ==

== ENCOUNTER → 2023-05-27 | Outpatient (CLI) | payer OTHER, SELFPAY ==
--- NOTE | 2023-05-27 07:10 | BI_ITS ---
MAMMOGRAPHY - BILATERAL SCREENING REASON FOR EXAM: Female, 63 years old. Routine annual screening examination. PERTINENT HISTORY: Non-contributory. Bilateral breast implants. TECHNIQUE: Digital bilateral breast yogi (3D mammographic acquisition) in the CC and MLO projections. 2-D mediolateral oblique (MLO) and craniocaudad (CC) views of both breasts were obtained. CAD: Full Field Digital Mammography with Computer Added Detection was performed. COMPARISON: Comparison is made with prior examination of May 26, 2022 and March 13, 2021. FINDINGS: Breast Composition: The breasts are heterogeneously dense, which may obscure small masses. There are no dominant masses or suspicious calcifications. Stable appearance of the bilateral breast implants. No other significant abnormalities are identified. There has been no significant change since the prior study. BI/SCRN MAMM (CAD)W/YOGI BILAT IMPRESSION: Stable bilateral screening mammogram. Yearly follow-up mammogram recommended. (A) ASSESSMENT CATEGORY: BIRADS Category 2: Benign. A letter regarding these results will be sent to the patient by the facility within 30 days. Approximately 10% of breast cancers are not detected by mammography. A normal mammogram should not delay biopsy of a clinically suspicious abnormality. [id number] Electronically Signed: Navjot Jay MD at 8:56 EST ,
== END | disposition home or self-care (01) ==
LOC: OPBI 07:09
PROVIDERS: PCP Family Medicine; Referring Provider Family Medicine; Visit Provider Family Medicine
DX: Z12.31 Encounter for screening mammogram for malignant neoplasm of breast (principal); Z98.82 Breast implant status
CPT/HCPCS: 77063; 77067

== ENCOUNTER 2024-05-16 10:45 | Outpatient (RCR) | payer OTHER, SELFPAY | END 2024-05-28 23:59 | LOC: EMPH 10:45 | PROVIDERS: PCP Family Medicine; Referring Provider Family Medicine Geriatric Medicine; Visit Provider Family Medicine Geriatric Medicine | DX: Z03.818 Encounter for observation for suspected exposure to other biological agents ruled out (principal) | CPT/HCPCS: 87811 ==

== ENCOUNTER → 2024-08-10 | Outpatient (CLI) | payer OTHER, SELFPAY ==
--- NOTE | 2024-08-10 07:10 | BI_ITS ---
PROCEDURE: SCRN MAMM (CAD)W/YOGI BILAT REASON FOR EXAM: F, Age 64 y/o, no family history. Routine annual mammogram. TECHNIQUE: Bilateral screening digital breast tomosynthesis with 2D and 3D images. Computer aided detection. COMPARISON: Prior exam(s) dating back to May 27, 2023.. FINDINGS: The breasts are heterogeneously dense which may obscure small masses. Stable appearance of the bilateral breast implants. Stable fat containing bilateral axillary lymph nodes. No suspicious masses, areas of developing architectural distortion, or suspicious calcifications. BI/SCRN MAMM (CAD)W/YOGI BILAT IMPRESSION: BI-RADS 2: BENIGN. RECOMMEND ANNUAL MAMMOGRAPHIC SCREENING. Follow-up code: Routine Follow-up The patient will be notified of the results by letter. Reading Location: [place] [id number]
== END | disposition home or self-care (01) ==
LOC: OPBI 07:09
PROVIDERS: PCP Family Medicine; Referring Provider Family Medicine; Visit Provider Family Medicine
DX: Z12.31 Encounter for screening mammogram for malignant neoplasm of breast (principal)
CPT/HCPCS: 77063; 77067

== ENCOUNTER 2024-12-13 07:04 | Emergency (ER) | payer OTHER, SELFPAY ==
[2024-12-13 07:04] VITALS: BP 163/82; PULSE 92; RESP 16; TEMP 36.7; O2SAT 100
[2024-12-13 07:21] VITALS: BMI 30.2
--- NOTE | 2024-12-13 08:25 | EDS_ITS ---
HPI History of Present Illness Chief Complaint: Dizziness Informant: patient and spouse/S.O. Narrative Narrative: 64-year-old female presenting to the emergency room with a chief complaint of vertigo. Patient states she has a history of vertigo and does take meclizine as needed. She states that she has seen ENT in the past and around 2020 had an MRI. She notes chronic tinnitus. The patient states her right ear always feels clogged. She notes that over the past couple weeks she has had increased episodes of vertigo. This morning she got up to go to work went out to the garage to grab a bottle of water from the fridge and when she went to the left started feeling her spinning sensation. She states that the room is spinning to the left. She notes some nausea. She denies headache or neck pain. No trauma. She had to sit down did not injure herself. Patient still feels symptomatic despite taking her meclizine when she moves her head and when she is up. She states that when she goes to ambulate she feels like she needs to hold onto something. [facility] Medical History Wears glasses Injury of head and neck Former smoker Osteopenia Vertigo Bilateral headaches Home Medications ?Medication ?Instructions ?Recorded ?Last Taken ?Type furosemide 20 mg tablet (Lasix) 20 mg PO DAILY PRN bridgett er retention 01/24/19 Unknown History diazepam 5 mg tablet (Valium) 5 mg PO TID PRN vertigo #10 tabs 12/13/24 Unknown Rx meclizine 25 mg tablet 12.5 - 25 mg PO TID PRN PRN 12/13/24 Unknown History dizziness Allergy/AdvReac Type Severity Reaction Status Date / Time No Known Allergies Allergy Verified 12/13/24 07:08 Family History Father Prostate cancer Mother Alzheimer disease Other CVA (cerebral vascular accident) Cancer Surgical History History of bladder suspension procedure History of tonsillectomy H/O: hysterectomy Social History Smoking Status: Former smoker alcohol intake: never substance use type: does not use what type of physical activity do you participate in: walking and weight training frequency: 1-2 times per week ROS ROS ED Constitutional Constitutional ED: Denies chills or weight loss Eyes Eyes: Denies change in vision or diplopia ENT ENT ED: Reports other Details: See history of present illness ; Denies ear pain, rhinorrhea or sore throat Cardiovascular Cardiovascular: Denies chest pain, orthopnea, palpitations or racing heartbeat Respiratory/Chest Respiratory/Chest: Denies cough, dyspnea or orthopnea Gastrointestinal Gastrointestinal: Denies abdominal pain, diarrhea, nausea or vomiting Genitourinary Genitourinary ED: Denies dysuria, hematuria or urinary frequency Musculoskeletal Musculoskeletal: Denies arthralgias or myalgias Integumentary Denies abscess or rash Neurologic Neurologic: Reports other Details: Dizziness open (room spinning to the left) ; Denies headache(s), paresthesias or weakness Psychiatric Psychiatric: Denies anxiety, depression, suicidal ideation or suicidal thoughts Endocrine Endocrinology: Denies polydipsia, polyphagia or polyuria Allergic/Immunologic Allergic/Immunologic ED: Denies mouth swelling, tongue swelling or urticaria EXAM Physical Exam Const Vital Signs: 12/13/24 07:04 12/13/24 09:34 Temperature 98.0 F Temperature Source Oral Pulse Rate 92 80 Respiratory Rate 16 18 Blood Pressure 163/82 H 135/79 H Blood Pressure Mean 109 97 Pulse Ox 100 100 Oxygen Delivery Method Room Air Room Air Positive well nourished and well developed General Appearance ED: well developed and NAD HEENT Reports normocephalic, head/scalp atraumatic and moist mucous membranes Eyes PERRL and EOMs intact bilaterally Neck no lymphadenopathy, supple and no JVD Resp normal respiratory effort and clear to auscultation bilaterally Cardio regular rate, regular rhythm and no murmurs GI normal to inspection, nondistended, normoactive bowel sounds and non-tender Palpation: soft Back/Spine no CVA tenderness and normal ROM Extremity normal to inspection General Extremety ED: Negative for edema General Extremity: Negative for edema Neuro oriented x3 and CN's II-XII intact bilaterally Neuro Narrative: The patient feels increased symptoms with standing up and with movement of the head to the right and the left. Sensorium / Orientation: alert Motor Exam: strength 5/5 throughout Psych mental status grossly normal Mood & Affect: Negative for depressed or tearful Skin no rashes or lesions noted and no wounds MDM MDM MDM Narrative Medical decision making narrative: Differential diagnosis includes benign positional vertigo central vertigo dissection stroke anemia electrolyte abnormalities Basic blood work is obtained essentially negative. Glucose noted to be 101. CTA head and neck was negative for acute findings or obvious cause for the patient's symptoms. Patient received a dose of diazepam. She is feeling significantly better on repeat examination. She is able to get up and ambulate down the hallway without symptomology. This point I think the patient most likely experienced benign positional vertigo. I can write for some Valium at home to give her options in addition to her meclizine which she takes. Repositioning techniques were discussed with the patient. Follow-up with primary care as needed History & Record Review Discussion w/independent historian: Patient and Significant other Lab Data Attestation: I reviewed the patient's lab results. Labs: Laboratory Results - last 24 hr 12/13/24 12/13/24 12/13/24 08:35 08:35 08:55 WBC Cancelled 6.9 Corrected WBC Cancelled RBC Cancelled 4.44 Hgb Cancelled 14.1 Hct Cancelled 41.7 MCV Cancelled 93.9 MCH Cancelled 31.8 MCHC Cancelled 33.8 RDW Std Deviation Cancelled 43.8 RDW Coeff of Feli Cancelled 12.7 Plt Count Cancelled 275 MPV Cancelled 9.6 Immature Gran % (Auto) Cancelled 0.100 Neut % (Auto) Cancelled 69.6 Lymph % (Auto) Cancelled 13.4 L Stevens % (Auto) Cancelled 6.3 Eos % (Auto) Cancelled 9.3 H Baso % (Auto) Cancelled 1.3 H Absolute Neuts (auto) Cancelled 4.8 Absolute Lymphs (auto) Cancelled 0.92 Total Counted Cancelled Neutrophils % (Manual) Cancelled Band Neutrophils % Cancelled Lymphocytes % (Manual) Cancelled Monocytes % (Manual) Cancelled Eosinophils % (Manual) Cancelled Basophils % (Manual) Cancelled Metamyelocytes % Cancelled Myelocytes % Cancelled Promyelocytes % Cancelled Blast Cells % Cancelled Plasma Cell % (Manual) Cancelled Other Cells % Cancelled Nucleated RBC % Cancelled 0 Nucleated RBCs/100 WBC Cancelled Differential Comment Cancelled Diff Path Review Cancelled Hypersegmented Neuts Cancelled Atypical Lymphocytes Cancelled Reactive Lymphocytes Cancelled Smudge Cells Cancelled Toxic Granulation Cancelled Toxic Vacuolation Cancelled Dohle Bodies Cancelled Marisa Rods Cancelled Platelet Estimate Cancelled Plt Morphology Comment Cancelled RBC Morphology Cancelled Cancelled Polychromasia Cancelled Hypochromasia Cancelled Basophilic Stippling Cancelled Anisocytosis Cancelled Microcytosis Cancelled Macrocytosis Cancelled Spherocytes Cancelled Sickle Cells Cancelled Target Cells Cancelled Tear Drop Cells Cancelled Ovalocytes Cancelled Stomatocytes Cancelled [place] Bodies Cancelled Hettinger Cells Cancelled Bite Cells Cancelled Crenated Cell Cancelled Acanthocytes (Spur) Cancelled Rouleaux Cancelled Schistocytes Cancelled Sodium 142 Potassium 4.1 Chloride 107 Carbon Dioxide 24.3 Anion Gap 11 BUN 13 Creatinine 0.77 Estim Creat Clear Calc 82.14 Est GFR (MDRD) Non-Af 87 BUN/Creatinine Ratio 16.9 Glucose 101 H Calcium 9.4 Radiography Diagnostic Testing: Clinical Impression(s) from Imaging Studies Head/Neck CTA 12/13/24 09:00 IMPRESSION: No large vessel occlusion. Carotid systems and vertebrobasilar systems are patent and demonstrate no plaque Negative noncontrast CT of the brain. No intra-axial or extra-axial hemorrhage, mass, mass effect or midline shift [facility] Discharge Plan Triage Chief Complaint: Dizziness ED Provider: Gavino Moore Dx/Rx/DC Orders Clinical Impression: Vertigo Instructions: ED BPV Vertigo Prescriptions: New diazepam [Valium] 5 mg tablet 5 mg PO TID PRN (Reason: vertigo) Qty: 10 0RF No Action furosemide [Lasix] 20 mg tablet 20 mg PO DAILY PRN (Reason: water retention) meclizine 25 mg tablet 12.5 - 25 mg PO TID PRN PRN (Reason: dizziness) Primary Care Provider: Roderick Weller Referrals: Roderick Weller DO [Primary Care Provider] - 1-2 Weeks Print Language: Dominican Disposition Disposition: Home, Self Care NIHSS NIHSS 1a. Level of Consciousness: 0 - Alert; keenly responsive 1b. LOC Questions: 0 - Answers BOTH questions correctly 1c. LOC Commands: 0 - Performs BOTH tasks correctly 2. Best Gaze: 0 - Normal 3. Visual: 0 - No visual loss 4. Facial Palsy: 0 - Normal symmetrical movements 5a. Left Arm: 0 - No drift; arm holds 90 (or 45) degrees for full 10 seconds 5b. Right Arm: 0 - No drift; arm holds 90 (or 45) degrees for full 10 seconds 6a. Left Le - No drift; leg holds 30-degree position for full 5 seconds 6b. Right Le - No drift; leg holds 30-degree position for full 5 seconds 7. Limb Ataxia: 0 - Absent 9. Best Language: 0 - No aphasia; normal 10. Dysarthria: 0 - Normal 11. Extinction and Inattention: 0 - No abnormality Total: 0
[2024-12-13] MEDS: diazePAM 5 MG Tablet PO (08:40)
--- NOTE | 2024-12-13 09:00 | CT_ITS ---
PROCEDURE: CTA head and neck with contrast 12/13/2024 REASON FOR EXAM: ATAXIA Dizziness, vertigo and falls TECHNIQUE: CTA HEAD AND NECK W/ CONTRAST Multiplanar Sagittal and Coronal images were obtained. Axial, coronal and sagittal MIP images CONTRAST: Isovue 370 VOLUME: 100 mL One or more dose reduction techniques were used (e.g., Automated exposure control, adjustment of the mA and/or kV according to patient size, use of iterative reconstruction technique). RADIATION DOSE SUMMARY: CTDlvol: 44.99 mGy DLP: 863.60 mGycm CTDlvol: 12.46 mGy DLP: 6.23 mGycm CTDlvol: 17.14 mGy DLP: 628.02 mGycm COMPARISON: CT brain 0 7 0 1 22 FINDINGS: Aortic Arch: Not included. Brachiocephalic and Subclavians: Negative as seen. RIGHT Carotid: Right CCA: Patent, no plaque at all. Right ICA: Patent, no plaque at all Maximum stenosis (NASCET): 0 % Right ECA: Patent LEFT Carotid: Left CCA: Patent, no plaque Left ICA: Patent, no plaque Maximum stenosis (NASCET): 0 % Left ECA: Patent, no plaque Vertebrals: Patent, no plaque RIGHT Vertebral: Patent, no plaque LEFT Vertebral: Patent, no plaque Aneurysm or avm: None Anterior cerebral arteries: Patent Middle cerebral arteries: Patent Basilar artery: Patent Posterior cerebral arteries: Patent Other major branches of the posterior circulation: Patent Major venous structures: Unremarkable Other findings: Neck: Unremarkable lungs: Not included bones: Unremarkable CT/CTA Head AND Neck W/ Contrast IMPRESSION: No large vessel occlusion. Carotid systems and vertebrobasilar systems are pat ent and demonstrate no plaque Negative noncontrast CT of the brain. No intra-axial or extra-axial hemorrhage , mass, mass effect or midline shift Reading [facility]
[2024-12-13 09:04] LABS: Absolute Lymphocyte Count 0.92 X10^3/uL (0.83-4.51); Absolute Neutrophil Count 4.8 X10^3/uL (2.0-7.7); Basophil# 0.09 X10^3/uL; Basophil% 1.3 % (0-1); Eosinophil# 0.64 X10^3/uL; Eosinophils% 9.3 % (0-5); Hematocrit 41.7 % (37-47); Hemoglobin 14.1 g/dL (12.0-15.0); Lymphocyte # 0.92 X10^3/ul (0.83-4.51); Lymphocyte % 13.4 % (19-41); Mean Corp Hgb Conc 33.8 g/dL (32-36); Mean Corpuscular Hgb 31.8 pg (27.0-32.0); Mean Corpuscular Volume 93.9 fL (81-99); Mean Platelet Vol. 9.6 fl (6.2-12.0); Monocyte# 0.43 X10^3/uL; Monocyte% 6.3 % (0-10); NRBC Flagged by Analyzer 0 % (0-5); Neutrophil # 4.77 X10^3/uL (2.7-7.7); Neutrophil % 69.6 % (47-70); Platelet Count 275 K/mm3 (150-450); RBC Distribution Width CV 12.7 % (11.6-14.6); RBC Distribution Width SD 43.8 fl (35.1-43.9); Red Blood Count 4.44 M/mm3 (4.2-5.4); White Blood Count 6.9 K/mm3 (4.4-11.0)
[2024-12-13 09:22] LABS: Anion Gap 11 (5-15); BUN 13 mg/dL (4-19); BUN/Creat Ratio 16.9 RATIO (10-20); Calcium,Total 9.4 mg/dL (7.6-11.0); Carbon Dioxide 24.3 mmol/L (21.0-32.0); Chloride 107 mmol/L (98-108); Creatinine, Serum 0.77 mg/dL (0.70-1.20); EST Glomerular Filtration Rate 87 (>60); Estimated Creatinine Clearance 82.14 ml/min (50-250); Glucose 101 mg/dL (70-99); Potassium 4.1 mmol/L (3.3-5.1); Sodium Level 142 mmol/L (133-145)
[2024-12-13 09:34] VITALS: BP 135/79; PULSE 80; RESP 18; O2SAT 100
[2024-12-13 10:34] VITALS: BP 135/75; PULSE 80; RESP 18; TEMP 37.1; O2SAT 99
== END 2024-12-13 10:38 | disposition home or self-care (01) ==
PROVIDERS: Emergency Provider Emergency Medicine; PCP Family Medicine; Visit Provider Emergency Medicine
DX: R42 Dizziness and giddiness (principal); R11.0 Nausea; H93.19 Tinnitus, unspecified ear; Z87.891 Personal history of nicotine dependence; Z90.710 Acquired absence of both cervix and uterus
CPT/HCPCS: 70496; 70498; 80048; 85025; 99283; Q9967; A4216

== ENCOUNTER → 2025-04-11 | Outpatient (CLI) | payer OTHER, SELFPAY ==
--- NOTE | 2025-04-11 09:50 | RAD_ITS ---
PROCEDURE: KNEE 4 OR MORE VIEWS 04/11/2025 REASON FOR EXAM: LEFT KNEE PAIN TECHNIQUE: Procedure Code: RADKN Modality: DX Procedure: KNEE 4 OR MORE VIEWS Laterality: FINDINGS: No evidence acute fracture or dislocation. Mild degenerative changes of the knee. No knee joint effusion. RAD/Knee 4 or More Views IMPRESSION: Mild osteoarthrosis. Reading Location: [id number]
== END | disposition home or self-care (01) ==
LOC: RAD 09:40
PROVIDERS: PCP Family Medicine; Referring Provider Family Medicine; Visit Provider Family Medicine
DX: M25.562 Pain in left knee (principal)
CPT/HCPCS: 73564